=== PATIENT | male | born 1950 | race Caucasian/White ===

== ENCOUNTER 2018-06-03 09:08 | Outpatient (CLI) | payer MEDICARE ==
[2018-06-03] MEDS ORDERED: Iopamidol 370 76% 100 ML VIAL ONE (11:43)
--- NOTE | 2018-06-03 13:16 | CT ---
CT ABDOMEN WITH ORAL AND IV CONTRAST: HISTORY: Hepatitis C. COMPARISON: 02/21/2011 FINDINGS: The lung bases are clear. Fatty infiltration of the liver is again noted. A tiny, low density lesio n in the dome of the liver is again noted. No enhancing mass in the liver is identified. The pancre as, adrenal glands, spleen, and left kidney are normal. The tiny, low density lesion in the right po sterior renal cortex is again noted. No free air or free fluid is seen in the abdomen or pelvis. A few prominent lymph nodes in the nasim caval change are stable. No mesenteric or retroperitoneal lymphadenopathy is seen. A retroaortic le ft renal vein is noted. The small bowel loops are not abnormally dilated. There is sigmoid divertic ulosis. A normal appearing appendix is seen. There are vascular calcifications without evidence of aneurysmal dilatation of the abdominal aorta. A small hiatal hernia is present. There are degenerat cristy changes in the spine. IMPRESSION: 1. Fatty liver. 2. Probably tiny cysts in the liver and right kidney, stable since 2010. 3. Sigmoid diverticulosis. 4. Stable prominent portacaval lymph nodes. 5. Small hiatal hernia. POS: [facility]
== END 2018-06-03 09:09 | disposition home or self-care (01) ==
LOC: CT 09:08
PROVIDERS: ATTEND Internal Medicine Gastroenterology
DX: B18.2 Chronic viral hepatitis C (principal); K76.0 Fatty (change of) liver, not elsewhere classified; K57.30 Diverticulosis of large intestine without perforation or abscess without bleeding; K44.9 Diaphragmatic hernia without obstruction or gangrene
CPT/HCPCS: 74160; 82565

== ENCOUNTER 2019-01-22 09:57 | Outpatient (CLI) | payer MEDICARE ==
--- NOTE | 2019-01-22 15:02 | ULT ---
HEPATIC ULTRASOUND WITH VASCULAR DUPLEX INCLUDING COLOR AND SPECTRAL DOPPLER IMAGING: Date: 01/22/19 HISTORY: Hepatitis C. COMPARISON: 05/16/17. FINDINGS: Heterogeneous coarse altered liver echogenicity evidence for nonspecific hepatic parenchymal process. No evidence of gallstones, wall thickening, or pericholecystic fluid. Common bile duct is not dilate d. No focal liver masses. Visualized pancreas is unremarkable. No significant splenomegaly. Vascular duplex demonstrates antegrade hepatic and portal venous flow. IMPRESSION: Heterogeneous liver echogenicity, evidence for nonspecific hepatic parenchymal process. Antegrade hep atic and portal venous flow. POS: [facility]
== END 2019-01-22 09:58 | disposition home or self-care (01) ==
LOC: BICULT 09:57
PROVIDERS: ATTEND Physician Assistant Medical
DX: Z08 Encounter for follow-up examination after completed treatment for malignant neoplasm (principal); R93.2 Abnormal findings on diagnostic imaging of liver and biliary tract; Z86.19 Personal history of other infectious and parasitic diseases
CPT/HCPCS: 76705

== ENCOUNTER 2019-08-17 09:57 | Outpatient (CLI) | payer MEDICARE ==
--- NOTE | 2019-08-17 12:24 | ULT ---
HEPATIC SONOGRAM WITH DUPLEX EVALUATION: Date: 08/17/2019 HISTORY: Hepatitis. Follow-up. COMPARISON: 01/22/2019. FINDINGS: Gallbladder has a normal appearance without stones. Common duct is 0.4 cm. Liver unremarkable without focal mass or intrahepatic biliary dilatation. No free fluid. Spleen measures up to 10.3 cm on today 's exam. Good color and spectral Doppler flow within the hepatic and splenic arteries. Portal venous flow is t owards the liver. Hepatic venous flow is towards the IVC. IMPRESSION: No significant abnormalities are demonstrated. No evidence of portal venous hypertension. POS: [facility]
== END 2019-08-17 09:58 | disposition home or self-care (01) ==
LOC: BICULT 09:57
PROVIDERS: ATTEND Physician Assistant Medical
DX: Z86.19 Personal history of other infectious and parasitic diseases (principal)
CPT/HCPCS: 76705

== ENCOUNTER 2020-04-04 12:39 | Outpatient (CLI) | payer MEDICARE ==
--- NOTE | 2020-04-04 13:26 | ULT ---
Hepatic sonogram with duplex evaluation HISTORY: Hepatitis C. FINDINGS: Gallbladder has normal appearance without stone. Common duct is 0.4 cm. Liver heterogeneous without focal mass or intrahepatic biliary dilatation. No free fluid. Spleen measures up to 10.6 cm. Good color and spectral Doppler flow within the hepatic and splenic arteries. Portal venous flow is t owards the liver. Hepatic venous flow is towards the IVC. IMPRESSION : No findings of portal venous hypertension. No abnormalities are demonstrated.
== END 2020-04-04 12:40 | disposition home or self-care (01) ==
LOC: BICULT 12:39
PROVIDERS: ATTEND Physician Assistant Medical
DX: K21.9 Gastro-esophageal reflux disease without esophagitis (principal); Z86.19 Personal history of other infectious and parasitic diseases
CPT/HCPCS: 76705

== ENCOUNTER 2020-11-17 09:58 | Outpatient (CLI) | payer MEDICARE | END 2020-11-17 09:59 | disposition home or self-care (01) | LOC: BICULT 09:58 | PROVIDERS: ATTEND Physician Assistant Medical | DX: K21.9 Gastro-esophageal reflux disease without esophagitis (principal); B18.2 Chronic viral hepatitis C; K76.89 Other specified diseases of liver | CPT/HCPCS: 76705 ==

== ENCOUNTER 2021-10-13 10:14 | Outpatient (CLI) | payer MEDICARE | END 2021-10-13 10:15 | disposition home or self-care (01) | LOC: BICULT 10:14 | PROVIDERS: ATTEND Physician Assistant Medical | DX: B18.2 Chronic viral hepatitis C (principal); K76.0 Fatty (change of) liver, not elsewhere classified | CPT/HCPCS: 76705 ==

== ENCOUNTER 2022-02-22 10:41 | Emergency (ER) | payer MEDICARE ==
[2022-02-22] MEDS ORDERED: Orphenadrine Citrate 60 MG/2 ML VIAL IM SCH (11:45)
[2022-02-22] MEDS ORDERED: Ketorolac Tromethamine 30 MG/ML VIAL ONE (11:48)
[2022-02-22] MEDS ORDERED: Dexameth. Sod Phosp. 10 MG/ML (CHEMO USE ONLY) ONE (11:48)
== END 2022-02-22 14:20 | disposition home or self-care (01) ==
LOC: ERS 10:41
DX: G58.8 Other specified mononeuropathies (principal); N40.0 Benign prostatic hyperplasia without lower urinary tract symptoms; Z79.899 Other long term (current) drug therapy
CPT/HCPCS: 72148; 96372; J1100; J1885; J2360

== ENCOUNTER 2022-04-25 09:28 | Outpatient (CLI) | payer MEDICARE | END 2022-04-25 09:29 | disposition home or self-care (01) | LOC: BICULT 09:28 | PROVIDERS: ATTEND Physician Assistant Medical | DX: B18.2 Chronic viral hepatitis C (principal) | CPT/HCPCS: 76705 ==

== ENCOUNTER 2022-09-04 09:47 | Outpatient (CLI) | payer MEDICARE | END 2022-09-04 09:48 | disposition home or self-care (01) | LOC: BICRAD 09:47 | PROVIDERS: ATTEND Registered Nurse | DX: M79.641 Pain in right hand (principal); M79.642 Pain in left hand; M19.041 Primary osteoarthritis, right hand ==

== ENCOUNTER 2023-05-10 10:05 | Outpatient (CLI) | payer MEDICARE | END 2023-05-10 10:06 | disposition home or self-care (01) | LOC: BICCT 10:05 | PROVIDERS: ATTEND Registered Nurse | DX: Z12.2 Encounter for screening for malignant neoplasm of respiratory organs (principal); Z13.6 Encounter for screening for cardiovascular disorders; F17.210 Nicotine dependence, cigarettes, uncomplicated | CPT/HCPCS: 71271; 76775 ==

== ENCOUNTER 2023-06-20 07:57 | Outpatient (CLI) | payer MEDICARE | END 2023-06-20 07:58 | disposition home or self-care (01) | LOC: BICULT 07:57 | PROVIDERS: ATTEND Physician Assistant Medical | DX: B18.2 Chronic viral hepatitis C (principal) | CPT/HCPCS: 76705 ==

== ENCOUNTER 2024-05-12 10:04 | Outpatient (CLI) | payer MEDICARE | END 2024-05-12 10:05 | disposition home or self-care (01) | LOC: BICULT 10:04 | PROVIDERS: ATTEND Physician Assistant Medical | DX: K74.60 Unspecified cirrhosis of liver (principal); Z87.19 Personal history of other diseases of the digestive system | CPT/HCPCS: 76705 ==